=== PATIENT | female | born 1970 | race Caucasian/White ===

== ENCOUNTER 2017-11-15 06:35 | Day surgery (SDC) | payer BC ==
[~2017-11-15] VITALS: Ht 175.3 cm; Wt 81.1 kg
[~2017-11-15 06:35] MED LIST: PRENATAL1 TA6 PO; ZOLOFT100 MG PO
[2017-11-15 06:53] VITALS: BP 119/73; PULSE 72; TEMP 97.7
[2017-11-15] MEDS ORDERED: PAXIL CR25 MG PO (07:12)
[2017-11-15] MEDS ORDERED: SYNTHROID0.05 MG/TA PO (07:12)
[2017-11-15] MEDS ORDERED: PRINIVIL10 MG PO (07:12)
[2017-11-15] MEDS ORDERED: THERATEARS SGL PO (07:13)
[2017-11-15] MEDS ORDERED: ZYRTEC 10MG10 MG PO (07:13)
[2017-11-15 08:49] VITALS: BP 118/74; PULSE 63; TEMP 97.7
[2017-11-15 09:00] VITALS: BP 118/76; PULSE 72
[2017-11-15 09:15] VITALS: BP 112/71; PULSE 72
[2017-11-15 09:30] VITALS: BP 111/75; PULSE 68
== END 2017-11-15 09:39 | disposition home or self-care (01) ==
LOC: SDCO 06:35
DX: Z12.11 Encounter for screening for malignant neoplasm of colon (principal); Z80.0 Family history of malignant neoplasm of digestive organs; D12.0 Benign neoplasm of cecum; E07.9 Disorder of thyroid, unspecified
CPT/HCPCS: J2250; J3010; J7030